=== PATIENT | female | born 1965 | race Caucasian/White ===

== ENCOUNTER → 2018-11-01 | Outpatient (CLI) | payer BC ==
--- NOTE | 2018-11-02 18:02 | Diagnostic Imaging Report ---
EXAMINATION: Digital mammogram bilateral screening. INDICATION: Screening. The current study was also evaluated with a Computer Aided Detection (CAD) system. 3-D tomosynthesis was also performed and reviewed. COMPARISON: This study was compared to the prior exam of 11/05/2010. At this time, there are no current complaints. FINDINGS: The fibroglandular tissue in both breasts is dense. This does limit the sensitivity of this exam. On the craniocaudad view of the left breast in the lateral aspect of the breast, approximately 3-4 cm deep to the nipple, there are two contiguous rounded densities. These have a conglomerate size of 1.6 cm. There is another similar-sized rounded density in the medial aspect of the left breast at the same level. The tomographic images suggest that these densities have a smooth border and most likely they are cysts. Even so, ultrasound would be recommended to better characterize them. There is no primary or secondary sign of malignancy involving the right breast. IMPRESSION: Ultrasound would be recommended for further evaluation of the nodular densities in the left breast. ACR BI-RADS Category 0: Incomplete. (Needs additional imaging evaluation). Result letter will be mailed to the patient. Note: At least 10% of breast cancer is not imaged by mammography. Dictated by: Dictated on workstation # [id number]
== END ==
LOC: RAD 09:55
PROVIDERS: ATTEND Obstetrics & Gynecology
DX: Z12.31 Encounter for screening mammogram for malignant neoplasm of breast (principal)
CPT/HCPCS: 77067

== ENCOUNTER → 2018-11-10 | Outpatient (CLI) | payer BC ==
--- NOTE | 2018-11-10 14:44 | Diagnostic Imaging Report ---
Indication: Breast densities. Patient presents for further evaluation. Correlation is made with prior study from 11/01/18. Sonographic interrogation of the medial and lateral left breast was performed. Multiple simple appearing breast cysts are noted. At the 3 o'clock location 2 cm from the nipple there is a 1.4 x 1.0 x 1.9 cm simple cyst, likely accounting for the mammographic density. Medial left breast also contains multiple cysts, largest approximately 3 cm from the nipple at 9 o'clock measuring 1.3 x 0.8 x 1.5 cm. This most likely accounts for the medial breast densities. No solid breast mass is detected. Impression: Medial and lateral breast cysts accounting for the mammographic densities. No solid breast mass is detected. Patient may return to routine annual screening mammography. BI-RADS category 2 ACR BI-RADS Category 2: Benign findings. Dictated by: Dictated on workstation # [id number]
== END ==
LOC: RAD 13:39
PROVIDERS: ATTEND Obstetrics & Gynecology
DX: N60.02 Solitary cyst of left breast (principal)
CPT/HCPCS: 76642